=== PATIENT | male | born 1980 | race Caucasian/White ===

== ENCOUNTER 2020-07-21 00:16 | Emergency (ER) | payer OTHER ==
[2020-07-21] MEDS ORDERED: KETOROLAC 60 MG/2 ML VIAL IM STA (00:34)
[2020-07-21] MEDS ORDERED: DEXAMETHASONE 10 MG/ML VIAL PO STA (00:35)
[2020-07-21] MEDS ORDERED: CHERRY SYRUP 10 ML UDC PO ONE (00:35)
--- NOTE | 2020-07-21 00:39 | ED Physician Documentation ---
PD HPI BACK PAIN - Stated complaint Stated Complaint: BACK PX - Chief complaint Chief Complaint: Back Pain - History obtained from History obtained from: Patient - History of Present Illness Timing - onset: How many days ago (5) Timing - duration: Days (5) Timing - details: Abrupt onset, Still present Location: Lower, Right, Left Quality: Pain, Spasm, Sharp, Similar to prior episodes Associated symptoms: No: Fever, Weakness, Numbness, Incontinent of urine, Unable to urinate, Hematuria, Incontinent of stool Improves with: Rest Worsened by: Movement, Lifting, Twisting, Palpation Contributing factors: Lifting, Twisting, Other (taking his daughter's bike in one hand it twisted his back.) Similar symptoms before: Diagnosis (lumbar spasm with fusion.) Recently seen: Not recently seen - Additional information Additional information: 40-year-old male has had pain in his low back for the past 5 days. He states this has progressively gotten worse and he is now, no longer able to stand it. He has pain anytime he moves anything. It took him 20 minutes to get dressed today and he is even having pain to take the breath. He has a fusion to his lumbar and cervical spine these are things that are been present forever and not surgical. He has had episodes of back pain never has it been this bad. He denies any difficulty with his bowel or bladder denies any fever he denies any radiation of the pain down either leg or numbness down either leg. He has not been sick this week. Review of Systems Constitutional: denies: Fever Eyes: denies: Decreased vision Ears: denies: Ear pain Nose: denies: Rhinorrhea / runny nose, Congestion Throat: denies: Sore throat Cardiac: denies: Chest pain / pressure, Palpitations Respiratory: denies: Dyspnea, Cough GI: denies: Abdominal Pain, Nausea, Vomiting : denies: Dysuria, Frequency Skin: denies: Rash Musculoskeletal: reports: Back pain. denies: Neck pain, Extremity pain Neurologic: denies: Generalized weakness, Focal weakness, Numbness, Difficulty speaking PD PAST MEDICAL HISTORY - Past Medical History Past Medical History: Yes Cardiovascular: Hypertension - Past Surgical History Past Surgical History: Yes General: Appendectomy Ortho: Other - Present Medications Home Medications: Ambulatory Orders Medication Instructions Recorded Confirmed Cyclobenzaprine [Flexeril] 10 mg PO TID PRN #20 tablet 07/21/20 HYDROcod/ACETAM 5/325 [[place] 5/325] 1 - 2 tablet PO Q6H PRN #14 tablet 07/21/20 - Allergies Allergies/Adverse Reactions: Allergies Allergy/AdvReac Type Severity Reaction Status Date / Time No Known Drug Allergies Allergy Verified 07/21/20 00:20 - Social History Does the pt smoke?: No Smoking Status: Never smoker Does the pt drink ETOH?: No Does the pt have substance abuse?: No - Immunizations Immunizations are current?: Yes PD ED PE NORMAL - Vitals Vital signs reviewed: Yes (hypoxic and hypertensive ) - General General: Alert and oriented X 3, No acute distress, Well developed/nourished - HEENT HEENT: Atraumatic, PERRL, EOMI - Neck Neck: Supple, no meningeal sign - Cardiac Cardiac: RRR, No murmur - Respiratory Respiratory: No respiratory distress, Clear bilaterally - Abdomen Abdomen: Normal bowel sounds, Soft, Non tender, Non distended, No organomegaly - Back Back: No CVA TTP, No spinal TTP, Other (There is pain to palpation and did not spasm of the paraspinous muscles from L2 down. This is present bilaterally. Seems like it may be worse on the left than the right.) - Derm Derm: Normal color, Warm and dry, No rash - Extremities Extremities: No deformity, No edema - Neuro Neuro: Alert and oriented X 3, industrial cleaner 2-12 intact, No motor deficit, No sensory deficit, Normal speech Eye Opening: Spontaneous Motor: Obeys Commands Verbal: Oriented GCS Score: 15 - Psych Psych: Normal mood, Normal affect Results - Vitals Vitals: Vital Signs - 24 hr 07/21/20 07/21/20 07/21/20 00:20 00:35 00:47 Temperature 36.6 C 36.6 C Heart Rate 98 98 88 Respiratory 16 16 Rate Blood Pressure 150/90 H 150/90 H O2 Saturation 90 L 90 L 96 07/21/20 01:08 Temperature 36.9 C Heart Rate 89 Respiratory 18 Rate Blood Pressure 148/109 H O2 Saturation 97 Oxygen O2 Source Room air PD MEDICAL DECISION MAKING - ED course Complexity details: reviewed results, re-evaluated patient, considered differential, d/w patient ED course: 40-year-old male with a strain to his lumbar spine has significant spasm to the paraspinous lumbar muscles and significant pain. He is administered dexamethasone and Toradol here in the emergency department we will send him home with some hydrocodone and Flexeril. He presented to the emergency department with a low oxygen saturation which was attributed to his unwillingness to take a deep breath as this is causing pain. This improved with pain control. Departure - Departure Disposition: Home, Self Care Clinical Impression: Back pain Qualifiers: Back pain location: low back pain Chronicity: acute Back pain laterality: bilateral Sciatica presence: without sciatica Qualified Code(s): M54.5 - Low back pain Instructions: ED Low Back Pain Injury Follow-Up: [facility] [Provider Group] Prescriptions: Cyclobenzaprine [Flexeril] 10 mg PO TID PRN #20 tablet PRN Reason: Spasms HYDROcod/ACETAM 5/325 [[place] 5/325] 1 - 2 tablet PO Q6H PRN #14 tablet PRN Reason: Pain Forms: Activity restrictions Discharge Date/Time: 07/21/20 01:18
[2020-07-21] MEDS ORDERED: HYDROcod/ACET 5/325 Prepack 4 PO STA (00:46)
[2020-07-21] MEDS ORDERED: CYCLOBENZAPRINE 10 MG Prepack 2 PO PRN (00:46)
[2020-07-21 01:11] VITALS: BP 148/109
== END 2020-07-21 01:18 | disposition home or self-care (01) ==
LOC: ED 00:16
DX: S39.012A Strain of muscle, fascia and tendon of lower back, initial encounter (principal); X58.XXXA Exposure to other specified factors, initial encounter; I10 Essential (primary) hypertension
CPT/HCPCS: 96372; 99283; 99284; A9270

== ENCOUNTER 2020-08-08 10:22 | Outpatient (CLI) | payer OTHER ==
--- NOTE | 2020-08-08 11:24 | SLEEP CARE CONSULTATION ---
Information from patient questionnaire entered by Lore Finney. I have reviewed and concur with the information entered by Lore Finney. This document represents the service I personally performed and the decisions made by me, Laurita Machado ARNP. History of Present Illness Service Date and Time: 08/08/2020 1022 Reason for Visit: New patient Chief Complaint: reports: Unrefreshed sleep, Snoring, Fatigue, Other (gain excess weight rapidly, high blood pressure) Usual bedtime: rotating shift, so varies Time it takes to fall asleep: varient of schedule and fatigue Snores at night: Yes (thinks it is more heavy breathing, say snoring) Observed to quit breathing while asleep: No Sleeps alone due to snoring: No Number of times waking at night: none, unless kids wake up Reasons for waking at night: reports: Bathroom, Other (kids wake up). denies: Choking, Snoring, Gasping for air Toss, Turn, or Twitch while sleeping: Yes Recalls having dreams: Yes Usually gets out of bed at: depends on schedule Feels refreshed in the morning: No Morning headache: No Sleepy or fatigued during the day: Yes Ever fallen asleep while driving: No Takes day naps: Yes (once a day if sean for about 30 minutes) Dreams during day naps: No Prior sleep studies: No Additional HPI information: I had the pleasure of seeing MANA RIOS today regarding the possibility of him having a sleep disorder. His current complaints are unrefreshed sleep and fatigue. He has been gaining weight and high blood pressure. He has rotating shifts from days, afternoon to nights for 5 days at a time regularly with his job. He does not wake up feeling rested most days. His has told him he snores but he thinks it is more heavy breathing. She falls asleep before him usually and has not said he stopped breathing during sleep. He has 3 children ages 2 to 7 years old and they are the main reason he awakens at night. He is adopted so he does not know if there are any sleep disorders in parents. - Parasomnia Symptoms Ever been unable to move upon waking from sleep: Yes Walks in sleep: No Talks in sleep: Yes Ever acted out dreams in sleep: No Ever felt weak in the knees when startled or emotional: No Bothered by creepy, crawly, restless sensations in legs: No Problems with memory or concentration: No Subjective Initial [place] Sleepiness Scale score: 5 (in 2020) Past Medical History Past Medical History: reports: Hypertension, Other (high cholesterol) Social History The patient's occupation is a Active . Patient is and lives in [place]. Have you smoked in the past 12 months: No Alcohol use: No Caffeine use: Yes Caffeine amount and frequency: 1 cup on shift Family History Family history of sleep disordered breathing: No Allergies and Home Medications Drug allergies reviewed: Yes (NKDA) Home medication list reviewed: Yes Allergy and home medication list: high cholesterol med prescribed yesterday, not sure of name Review of Systems Weight gain over past 5 years: 40 Cardiovascular: reports: high blood pressure Gastrointestinal: denies: heartburn Neurological: denies: headaches Psychiatric: denies: anxiety, depression Ear/Nose/Throat: denies: tonsillectomy Physical Exam Blood Pressure: 151/98 Cuff size: wrist Heart Rate: 86 O2 Saturation: 96 Height: 6 ft Weight: 244 lb Body Mass Index: 33.0 BMI Classification: Obese Neck circumference: 18.25 (inches) Nostrils: patent to airflow Mouth and throat: narrow oropharynx Soft palate: long Hard palate: normal Uvula: normal Uvula visualization: 25% Mallampati Class III Tongue: enlarged in size with teeth hernández on lateral edges Tonsils: 2+ Heart: regular rate and rhythm Lungs: clear bilaterally Impression and Plan 1. Suspected Obstructive Sleep Apnea-Hypopnea Syndrome, as suggested by a history of irregular snoring and unrefreshed sleep. Narrow oropharynx and obesity are common predisposing factors for obstructive sleep apnea-hypopnea syndrome. I recommend proceeding to polysomnography to confirm the diagnosis and to assess severity. If the patient has significant sleep disordered breathing, a manual CPAP titration study will also be performed to find the optimal treatment pressure. I informed the patient of what the sleep studies involve and after some discussion, obtained agreement to proceed. The pathophysiology of obstructive sleep apnea-hypopnea syndrome was discussed with the patient and health risks of cardiovascular and cerebrovascular disease if not treated. Risks of drowsy driving discussed in detail and patient advised to avoid long distance driving and to car clerk pullman at the first sign of drowsiness. Patient agreed to plan. * Schedule polysomnography +- manual CPAP titration study and return in 1-2 weeks after the study to discuss result and initiate therapy. * Avoid long distance driving or driving when feeling sleepy. * Avoid sedative and muscle relaxant around bedtime. * Attempt to lose weight. * Review instructions provided by trained office staff on how to prepare for the sleep study. * Return for follow-up after sleep study completed. Counseling Topics: Weight loss health impact Visit Type: In Office Time Spent with Patient (minutes): 30 Provider Statement: I spent 100% of the Face to Face Visit with the patient with greater than 50% spent counseling the patient and coordination of care.
[2020-08-08 11:25] VITALS: BP 151/98
== END 2020-08-08 10:23 | disposition home or self-care (01) ==
LOC: SC 10:22
PROVIDERS: ATTEND Nurse Practitioner Family
DX: R06.83 Snoring (principal); G47.8 Other sleep disorders; E66.9 Obesity, unspecified; Z68.33 Body mass index [BMI] 33.0-33.9, adult
CPT/HCPCS: 99203; 99212

== ENCOUNTER 2020-09-18 19:37 | Outpatient (CLI) | payer OTHER | END 2020-09-18 19:38 | disposition home or self-care (01) | LOC: SC 19:37 | PROVIDERS: ATTEND Nurse Practitioner Family | DX: G47.33 Obstructive sleep apnea (adult) (pediatric) (principal); G47.61 Periodic limb movement disorder; E66.9 Obesity, unspecified; Z68.33 Body mass index [BMI] 33.0-33.9, adult | CPT/HCPCS: 95810 ==

== ENCOUNTER 2020-10-02 11:43 | Outpatient (CLI) | payer OTHER ==
--- NOTE | 2020-10-02 12:04 | SLEEP CARE CONSULTATION ---
Information from patient questionnaire entered by Lore Finney. I have reviewed and concur with the information entered by Lore Finney. This document represents the service I personally performed and the decisions made by , Laurita Machado ARNP. History of Present Illness Service Date and Time: 10/02/2020 1140 Initial [place] Sleepiness Scale score: 5 (in 2020) Current [place] Sleepiness Scale score: 6 Additional HPI information: MANA RIOS returns for follow up and results of the recently performed polysomnography. Patient was found to have mild obstructive sleep apnea with an average AHI of 10.6 and a nicole oxygen saturation of 86% with severe periodic leg movements of sleep. I explained the pathophysiology behind obstructive sleep apnea. We then spent quite a bit of time discussing different treatment options. For mild obstructive sleep apnea, surgery and oral appliance are alternatives to nasal CPAP therapy but in moderate or severe cases, nasal CPAP is the most effective and reliable treatment. Because apnea is primarily in supine position, then positional management therapy could be effective. Methods discussed such as positioning with pillows, using a T-shirt with tennis balls in the back, and shown commercial products that have a pillow format on back to prevent supine sleep. I reviewed the impact of weight changes on sleep apnea and strongly recommended losing weight. After some discussion, the patient opted to go with the nasal CPAP therapy. Nasal autoCPAP set at 4-15 cmH20 will be ordered with rationale explained. A manual titration study will be ordered if unable to find optimal pressure with office adjustments. I explained how CPAP machine works with sample devices RespirM[employer]Huts Dreamstation and [employer] [id number] and what to expect when using the machine. Using CPAP ev michelle night in order to get used to it was emphasized. Patient advised to put CPAP mask on before getting into bed so as not to fall asleep without CPAP. To assist acclimation to CPAP use, it could also be used for a short time during day while reading or watching TV. The patient was instructed to call the CPAP supplier to discuss any mechanical problem that may occur. If the mask given is uncomfortable or is difficult to keep on through the night even with adjustment, contact the CPAP supplier as many will replace with another mask style if notified before 30 days. If snoring or perceives is not getting enough air or too much air from the machine, notify this office. AASM patient education PAP tips reviewed and given to patient. Patient counseled not drink alcohol less than 4 hours before bedtime as it can increase snoring and apnea. Patient was cautioned about risks of drowsy driving until sleepiness symptoms resolve. Sleep Study - Results Type of Sleep Study: Polysomnography Prior sleep studies: No Polysomnography/Home Sleep Study results: IMPRESSION: The quality of the study is good. The patient had normal sleep efficiency. The sleep architecture was relatively normal as well considering the first night effect. Respiratory monitoring showed mild obstructive sleep apnea-hypopnea (AHI = 10.6) associated with oxyhemoglobin desaturation and mild hypoxia (nicole oxygen saturation of 86%). The respiratory events occurred almost exclusively during supine sleep (supine AHI = 13.6; non-supine = 3.83). Snore was light to loud in intensity. There was severe periodic leg movement of sleep not associated with sleep fragmentation. Cardiac rhythm was normal sinus rhythm with occasional premature ventricular contractions. No abnormal behavior (parasomnia) observed during the night. Allergies and Home Medications Home medication list reviewed: Yes (no changes) Review of Systems Review of systems same as previous: Yes (no changes) Physical Exam Heart Rate: 79 O2 Saturation: 96 Height: 6 ft Weight: 240 lb Body Mass Index: 32.5 BMI Classification: Obese Impression and Plan 1. Obstructive Sleep Apnea-Hypopnea Syndrome, mild, with lowest oxygen saturation of 86%. Obviously this is the cause of the patients symptoms of unrefreshed sleep, and excessive daytime sleepiness. Positive pressure therapy could benefit hypertension. As mentioned above, the patient will be started on nasal autoCPAP therapy with pressure set at 4-15 cmH2O. A manual titration study will be completed if unable to find optimal treatment pressure with office adjustments. Compliance guidelines also reviewed. A copy of compliance guidelines will be given for reference at check out. Because the apnea is more severe supine, I instructed to avoid sleeping supine using pillow positioning until able to start CPAP use. 2. Periodic limb movement, severe, that did not fragment patients sleep. Periodic limb movement of sleep (PLMS) is characterized by episodes of repetitive limb movements that occur during sleep and usually involve the lower limbs. The etiology is unknown but can be associated with restless leg syndrome (RLS), neuropathy, spinal cord diseases, kidney disease, rheumatological disorders, narcolepsy, obstructive sleep apnea, and REM sleep behavior disorder. Patient was advised that no treatment is needed at this time. If symptoms increase, then further evaluation is indicated. * Nasal auto CPAP therapy, pressure at 4-15 cm H2O. * Attempt to lose weight. * Avoid alcohol consumption near bedtime. * Avoid supine sleep until using CPAP. * The patient is again cautioned about driving until sleepiness completely resolves. * Return one month after CPAP obtained. I will assess response to therapy and compliance at that time. Counseling Topics: Sleeping position, Weight loss health impact Visit Type: In Office Time Spent with Patient (minutes): 21 Provider Statement: I spent 100% of the Face to Face Visit with the patient with greater than 50% spent counseling the patient and coordination of care.
== END 2020-10-02 11:44 | disposition home or self-care (01) ==
LOC: SC 11:43
PROVIDERS: ATTEND Nurse Practitioner Family
DX: G47.33 Obstructive sleep apnea (adult) (pediatric) (principal); G47.61 Periodic limb movement disorder; E66.9 Obesity, unspecified; Z68.32 Body mass index [BMI] 32.0-32.9, adult
CPT/HCPCS: 99212; 99213

== ENCOUNTER 2020-11-25 09:42 | Outpatient (CLI) | payer OTHER ==
--- NOTE | 2020-11-25 10:20 | SLEEP CARE CONSULTATION ---
Information from patient questionnaire entered by Lore Finney. I have reviewed and concur with the information entered by Lore Finney. This document represents the service I personally performed and the decisions made by , Laurita Machado ARNP. History of Present Illness Service Date and Time: 11/25/2020 0942 Previous diagnosis: Mild, Obstructive Sleep Apnea-Hypopnea Syndrome AHI: 10.6 (in 2020) Reason for follow up: first compliance Equipment type: CPAP Equipment obtained from: Other ([facility]; got inital supplies) Mask style: Full face Backup mask available: No (will keep old mask when replaced) Last cushion change: 1 month Prior sleep studies: Yes Year and Where: 2020 - [facility] Type of Sleep Study: Polysomnography HPI additional information: MANA RIOS was diagnosed to have mild, AHI 10.6, obstructive sleep apnea- hypopnea syndrome and returned today for CPAP therapy first compliance follow- up. CPAP Compliance Data - Data Reviewed with Patient Average duration of nightly device use: 5 hr 19 sec Compliance rate %: 63.3 (last 30)(met compliance 10/18/20 - 11/16/20 - 70%) Current pressure setting (cmH2O): 4-15 (median 7.5, avg 11.6, peak 12.1) Humidity settin Heated hose settin Average residual AHI: 2.4 Average large leak: 2 sec Subjective Patient concerns: denies: aerophagia, mask discomfort, air blowing in eyes, mask leak noise, condensation in mask/hose, nasal congestion, dry mouth, nose, throat, epistaxis, other Observed to snore while using device: No Current pressure setting perceived as: comfortable On therapy, patient: reports: sleeping better, awakening more refreshed, being more awake and alert during the day, more rested overall. denies: drowsiness while driving Initial [place] Sleepiness Scale score: 5 (in 2020) Current [place] Sleepiness Scale score: 7 Allergies and Home Medications Home medication list reviewed: Yes (no changes) Review of Systems Review of systems same as previous: Yes (no changes) Physical Exam Heart Rate: 84 O2 Saturation: 98 Height: 6 ft Weight: 246 lb Body Mass Index: 33.3 BMI Classification: Obese Impression and Plan 1. Obstructive Sleep Apnea-Hypopnea Syndrome, mild, with fair treatment compliance and good apnea control. On CPAP therapy, the patient has better sleep quality and is more rested overall. Patient met compliance at 70% between -11/16/20. The patients pressure will be changed to autoCPAP 8-12 cmH20. Patient advised to contact me if pressure change is uncomfortable so that it can be adjusted. Goals for apnea control discussed. Compliance guidelines reviewed for insurance coverage. Patient was counseled on the difference between meeting compliance and optimal use of CPAP. Optimal use of CPAP is use of CPAP with all sleep to obtain maximum benefit of treatment. Patient is encouraged to use CPAP with all sleep. Patient's apnea severity and rationale for treatment to reduce apnea, improve sleep quality and reduce cardiovascular and cerebrovascular events was reviewed. I also reviewed the benefit of consistent device use of CPAP for hypertension. * Change auto CPAP pressure to 8-12 cmH2O * Notify me if snoring with mask or feeling that the pressure is too much or too little * Attempt to lose weight * Call this office if any problems using CPAP * Return for follow up in 1-2 months, or sooner if concerns arise Counseling Topics: Spare mask, Weight loss health impact Visit Type: In Office Time Spent with Patient (minutes): 17 Provider Statement: I spent 100% of the Face to Face Visit with the patient with greater than 50% spent counseling the patient and coordination of care.
== END 2020-11-25 09:43 | disposition home or self-care (01) ==
LOC: SC 09:42
PROVIDERS: ATTEND Nurse Practitioner Family
DX: G47.33 Obstructive sleep apnea (adult) (pediatric) (principal); E66.9 Obesity, unspecified; Z68.33 Body mass index [BMI] 33.0-33.9, adult
CPT/HCPCS: 99212

== ENCOUNTER 2020-12-25 09:12 | Outpatient (CLI) | payer OTHER ==
--- NOTE | 2020-12-25 09:45 | SLEEP CARE CONSULTATION ---
Information from patient questionnaire entered by Nuvia Hsu. I have reviewed and concur with the information entered by Nuvia Hsu. This document represents the service I personally performed and the decisions made by , Laurita Machado ARNP. History of Present Illness Service Date and Time: 12/25/2020 0912 Previous diagnosis: Mild, Obstructive Sleep Apnea-Hypopnea Syndrome AHI: 10.6 (in 2020) Reason for follow up: one month (with pressure change) Equipment type: CPAP Equipment obtained from: Other ([facility]; got inital supplies) Mask style: Full face Backup mask available: No (supplies on way in Jan) Prior sleep studies: Yes Year and Where: 2020 - [facility] Type of Sleep Study: Polysomnography HPI additional information: MANA RIOS was diagnosed to have mild, AHI 10.6, obstructive sleep apnea-hypopnea syndrome and returned today for CPAP therapy one month with pressure change follow-up. Sleep Study - Results Type of Sleep Study: Polysomnography Prior sleep studies: Yes Year and Where: 2020 - [facility] CPAP Compliance Data - Data Reviewed with Patient Average duration of nightly device use: 5 hours 18 minutes Compliance rate %: 66.7 Current pressure setting (cmH2O): 8-12 (avg 10.2) Humidity settin Heated hose settin Average residual AHI: 2.9 Average large leak: 1 minute 30 seconds Subjective Missed days of use due to: reports: mask issues, other (fell asleep) Patient concerns: denies: aerophagia, mask discomfort, air blowing in eyes, mask leak noise, condensation in mask/hose, nasal congestion, dry mouth, nose, throat, epistaxis, other Observed to snore while using device: No Current pressure setting perceived as: too low On therapy, patient: reports: sleeping better, awakening more refreshed, being more awake and alert during the day, more rested overall. denies: drowsiness while driving Initial [place] Sleepiness Scale score: 5 (in 2020) Current [place] Sleepiness Scale score: 2 Allergies and Home Medications Home medication list reviewed: Yes (no changes) Review of Systems Review of systems same as previous: Yes (no changes) Physical Exam Heart Rate: 88 O2 Saturation: 97 Height: 6 ft Weight: 251 lb Body Mass Index: 34.0 BMI Classification: Obese Impression and Plan 1. Obstructive Sleep Apnea-Hypopnea Syndrome, mild, with fair treatment compliance and good apnea control. On CPAP therapy, the patient has better sleep quality and is more rested overall. Patient has felt that the starting pressure is too low would like to have an increase. Patient is averaging 10.2 cm H2O so I feel it would be okay to increase. The patients pressure will be changed to autoCPAP 10-12 cmH20. Patient advised to contact me if pressure change is uncomfortable so that it can be adjusted. Goals for apnea control discussed. Patient has been able to bring up his compliance to 66.7% and it appears he will continue to get this up over 70. We will follow-up again with him in about 3 months. Patient was encouraged to lose weight for their overall health and to reduce apneas. Patient's apnea severity and rationale for treatment to reduce apnea, improve sleep quality and reduce cardiovascular and cerebrovascular events was reviewed. I also reviewed the benefit of consistent device use of CPAP for hypertension. * Change auto CPAP pressure to 10-12 cmH2O * Notify me if snoring with mask or feeling that the pressure is too much or too little * Attempt to lose weight * Call this office if any problems using CPAP * Return for follow up in 3 months, or sooner if concerns arise Counseling Topics: Spare mask, Weight loss health impact Visit Type: In Office Time Spent with Patient (minutes): 15 Provider Statement: I spent 100% of the Face to Face Visit with the patient with greater than 50% spent counseling the patient and coordination of care.
== END 2020-12-25 09:13 | disposition home or self-care (01) ==
LOC: SC 09:12
PROVIDERS: ATTEND Nurse Practitioner Family
DX: G47.33 Obstructive sleep apnea (adult) (pediatric) (principal); E66.9 Obesity, unspecified; Z68.34 Body mass index [BMI] 34.0-34.9, adult
CPT/HCPCS: 99212

== ENCOUNTER 2021-04-03 10:24 | Outpatient (CLI) | payer OTHER ==
--- NOTE | 2021-04-03 10:53 | SLEEP CARE CONSULTATION ---
Information from patient questionnaire entered by Clyde Walters MA. I have reviewed and concur with the information entered by Clyde Walters MA. This document represents the service I personally performed and the decisions made by , Laurita Machado ARNP. History of Present Illness Service Date and Time: 04/03/2021 1024 Previous diagnosis: Mild, Obstructive Sleep Apnea-Hypopnea Syndrome AHI: 10.6 (in 2020) Reason for follow up: three month (PRESSURE CHANGE) Equipment type: CPAP Equipment obtained from: Other ([facility]; has not got any more supplies) Mask style: Full face Backup mask available: Yes (other mask) Last cushion change: don't remember [facility] HPI additional information: MANA RIOS was diagnosed to have mild, AHI 10.6, obstructive sleep apnea- hypopnea syndrome and returned today for CPAP therapy three month with pressure change follow-up. Sleep Study - Results Type of Sleep Study: Polysomnography [facility] Data - Data Reviewed with Patient Average duration of nightly device use: 4 HOURS 19 MINUTES Compliance rate %: 51.1 Current pressure setting (cmH2O): 10-12 Humidity settin Heated hose settin Average residual AHI: 1.5 Average large leak: 3 MINUTES 51 SECONDS Subjective Missed days of use due to: reports: other (work shift 24 hrs) Patient concerns: denies: aerophagia, mask discomfort, air blowing in eyes, mask leak noise, condensation in mask/hose, nasal congestion, dry mouth, nose, thro at, epistaxis, other Observed to snore while using device: No Current pressure setting perceived as: comfortable On therapy, patient: reports: sleeping better, awakening more refreshed, being more awake and alert during the day, more rested overall. denies: drowsiness while driving Initial [place] Sleepiness Scale score: 5 (in 2020) Current [place] Sleepiness Scale score: 1 Allergies and Home Medications Home medication list reviewed: Yes (no changes) Review of Systems Review of systems same as previous: Yes (no changes) Physical Exam Vital signs obtained and entered by: Mikala Vieira MA Blood Pressure: 138/84 Cuff size: regular Heart Rate: 81 O2 Saturation: 96 Height: 6 ft Weight: 253 lb 3.2 oz Weight change since last visit: 2 lb gain Body Mass Index: 34.3 BMI Classification: Obese Impression and Plan 1. Obstructive Sleep Apnea-Hypopnea Syndrome, mild, with fair treatment compliance and good apnea control. On CPAP therapy, the patient has better sleep quality and is more rested overall. Patient is compliance is still down. 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 He has had times where he worked a 24-hour shift. We discussed these difficulties and he is committed to using the CPAP and will try to increase the days with 4+ hours on his CPAP. To prevent falling asleep without CPAP after using the bathroom, patient can either unhook the hose and keep mask on or put mask on pillow. He voiced understanding. Patient's apnea severity and rationale for treatment to reduce apnea, improve sleep quality and reduce cardiovascular and cerebrovascular events was reviewed. I also reviewed the benefit of consistent device use of CPAP for hypertension. Patient has gained weight. Currently patients BMI is 34.3. Obesity increases the risk of apnea, CPAP pressure requirements and overall health risks especially cardiovascular and diabetes. Patient was encouraged to lose weight for their overall health and to reduce apneas. * Continue auto CPAP pressure at 10-12 cmH2O * Notify me if snoring with mask or feeling that the pressure is too much or too little * Attempt to lose weight * Call this office if any problems using CPAP * Return for follow up in 6 months, or sooner if concerns arise Counseling Topics: Spare mask, Weight loss health impact Visit Type: In Office Time Spent with Patient (minutes): 21 Provider Statement: I spent 100% of the Face to Face Visit with the patient with greater than 50% spent counseling the patient and coordination of care.
[2021-04-03 10:54] VITALS: BP 138/84
== END 2021-04-03 10:25 | disposition home or self-care (01) ==
LOC: SC 10:24
PROVIDERS: ATTEND Nurse Practitioner Family
DX: G47.33 Obstructive sleep apnea (adult) (pediatric) (principal); E66.9 Obesity, unspecified; Z68.34 Body mass index [BMI] 34.0-34.9, adult
CPT/HCPCS: 99212; 99213

== ENCOUNTER 2021-08-26 13:46 | Outpatient (CLI) | payer OTHER ==
[2021-08-26 14:29] VITALS: BP 126/87
--- NOTE | 2021-08-26 14:29 | SLEEP CARE CONSULTATION ---
Information from patient questionnaire entered by Clyde Walters MA. I have reviewed and concur with the information entered by Clyde Walters MA. This document represents the service I personally performed and the decisions made by , Laurita Machado ARNP. History of Present Illness Service Date and Time: 08/26/2021 1346 Previous diagnosis: Mild, Obstructive Sleep Apnea-Hypopnea Syndrome AHI: 10.6 (in 2020) Reason for follow up: six month (LAST SEEN 04/03/21, ) Equipment type: CPAP Equipment obtained from: Other ([facility]; getting supplies as needed) Mask style: Full face Backup mask available: Yes (old mask) Last cushion change: 2 weeks [facility]: [facility] HPI additional information: MANA RIOS was diagnosed to have mild, AHI 10.6, obstructive sleep apnea- hypopnea syndrome and returned today for CPAP therapy six month follow-up. Sleep Study - Results Type of Sleep Study: Polysomnography Prior sleep studies: Yes Year and Where: 2020 - [facility] Compliance Data - Data Reviewed with Patient Average duration of nightly device use: 5 HOURS 19 MINUTES Compliance rate %: 71.1 (02/26/21-) Current pressure setting (cmH2O): 10-12 Humidity settin Heated hose settin Average residual AHI: 1.3 Average large leak: 3 MINUTES 7 SECONDS Subjective Missed days of use due to: reports: mask issues Patient concerns: denies: aerophagia, mask discomfort, air blowing in eyes, mask leak noise, condensation in mask/hose, nasal congestion, dry mouth, nose, throat, epistaxis Observed to snore while using device: No Current pressure setting perceived as: comfortable On therapy, patient: reports: sleeping better, awakening more refreshed, being more awake and alert during the day, more rested overall. denies: drowsiness while driving Initial [place] Sleepiness Scale score: 5 (in 2020) Current [place] Sleepiness Scale score: 3 (07/2021) Allergies and Home Medications Known drug allergies: No Drug allergies reviewed: Yes Home medication list reviewed: Yes (no changes) Allergy and home medication list: Allergies No Known Drug Allergies Allergy (Verified 07/21/20 00:20) Review of Systems Review of systems same as previous: Yes (no changes) Physical Exam Vital signs obtained and entered by: MARY NAVA Blood Pressure: 126/87 (LEFT, PULSE 76, RESP 16, ) Cuff size: wrist Heart Rate: 78 O2 Saturation: 96 Height: 6 ft Weight: 250 lb (CLOTHES) Weight change since last visit: 3 lbs loss Body Mass Index: 33.9 BMI Classification: Obese Impression and Plan 1. Obstructive Sleep Apnea-Hypopnea Syndrome, mild, with good treatment compliance and good apnea control. On CPAP therapy, the patient has better sleep quality and is more rested overall. Patient denies problems with oral dryness, nasal congestion, epistaxis, skin irritation or aerophagia. 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 He is doing well on his CPAP and is compliant. He was instructed to get a follow-up this time next year for his yearly annual visit. He voiced understanding. Patient's apnea severity and rationale for treatment to reduce apnea, improve sleep quality and reduce cardiovascular and cerebrovascular events was reviewed. I also reviewed the benefit of consistent device use of CPAP for hypertension. Patient has lost about 3 pounds and he states he is continuing to try to lose weight. His BMI is 33.9. * Continue auto CPAP pressure at 10-12 cmH2O * Notify me if snoring with mask or feeling that the pressure is too much or too little * Continue to try to lose weight * Call this office if any problems using CPAP * Return for follow up in 1 year, or sooner if concerns arise Counseling Topics: Spare mask, Weight loss health impact Visit Type: In Office Time Spent with Patient (minutes): 20 Provider Statement: I spent 100% of the Face to Face Visit with the patient with greater than 50% spent counseling the patient and coordination of care.
== END 2021-08-26 13:47 | disposition home or self-care (01) ==
LOC: SC 13:46
PROVIDERS: ATTEND Nurse Practitioner Family
DX: G47.33 Obstructive sleep apnea (adult) (pediatric) (principal); E66.9 Obesity, unspecified; Z68.33 Body mass index [BMI] 33.0-33.9, adult
CPT/HCPCS: 99212; 99213